=== PATIENT | female | born 1995 | race Caucasian/White ===

== ENCOUNTER 2019-06-30 13:15 | Outpatient (CLI) | payer OTHER, MEDICAID, SELFPAY ==
--- NOTE | 2019-06-30 13:32 | US_ITS ---
WS: [id number] OB limited [id number] REASON FOR EXAM: NO FHT'S/ FIRST TRIMESTER FINDINGS: heart rate 164 bpm. [place]-rump length 3.42 cm 10 weeks 2 days gestation Yolk sac 0.60 cm. US/ OB limited [id number] IMPRESSION: Normal interuterine Normal adnexa and pelvis. The fetus is approximately 10 weeks 2 days gestation a due date approximately ep2019
== END 2019-06-30 13:16 | disposition home or self-care (01) ==
LOC: RAD 13:23
PROVIDERS: Family Provider Family Medicine; PCP Family Medicine; Visit Provider Family Medicine
DX: Z34.81 Encounter for supervision of other normal pregnancy, first trimester (principal)
CPT/HCPCS: 76815

== ENCOUNTER 2019-09-02 09:42 | Outpatient (CLI) | payer OTHER, MEDICAID, SELFPAY ==
--- NOTE | 2019-09-02 09:57 | US_ITS ---
WS: [id number] ULTRASOUND TRANSABDOMINAL HISTORY: SUPERVISION OF NORMAL MULTIGRAVIDA PREGNACY, SECOND TRIMESTE : 2 PARA: 1 COMPARISON: None available. FINDINGS: Cervical length is 5.7 cm; closed. Placenta grade 0, posterior cardiac tones 141 BPM. Biparietal diameter measures 4.5 cm, equals 19w4d. Head circumference measures 16.8 cm, equals 19w3d. Abdomen circumference measures 14.3 cm, equals 19w5d. Femur length measures 3.2 cm, equals 19w6d. Estimated gestational age 19w5d An estimated delivery 01/22/2020. Estimated weight 308 g. anatomy shows normal stomach, kidneys, cervical spine, upper extremities, lower extremities, na liberty profile and mouth appear to be normal. Urinary bladder is well identified. Cardiac insertion well identified. The spine appears normal. 4 chambers of the heart are well seen. The brain shows lateral ventricles, cerebellum, cisterna magna, 2 vessels in the umbilical cord are seen. US/US OB >= 14 weeks fetus [id number] IMPRESSION: 1. Single live intrauterine uterines . Estimated gestational age 19w 5d and estimated delivery 01/22/2020. 2. Normal of development of the parts appears to be evident.
== END 2019-09-02 09:43 | disposition home or self-care (01) ==
LOC: RAD 09:53
PROVIDERS: Family Provider Family Medicine; PCP Family Medicine; Visit Provider Family Medicine
DX: Z34.92 Encounter for supervision of normal pregnancy, unspecified, second trimester; Z3A.19 19 weeks gestation of pregnancy
CPT/HCPCS: 76805

== ENCOUNTER 2019-12-07 14:46 | Outpatient (CLI) | payer OTHER, MEDICAID, SELFPAY ==
--- NOTE | 2019-12-07 14:52 | US_ITS ---
WS: [id number] ULTRASOUND OB LIMITED TECHNIQUE: Limited ultrasound examination of the fetus. CLINICAL INFORMATION: SMALL FOR GESTATIONAL AGE COMPARISON: None. FINDINGS: 4.3 cm Single interuterine gestation. presentation is vertex Placental location is posterior. Placenta grade: 0. heart rate 160 BPM. Normal amniotic fluid volume Anatomy: BDP: 8.3 cm = 33w1d HC: 30.3 cm = 33w5d AC: 29.0 cm = 33w0d FEMUR LENGTH: 6.4 cm = 33w0d Estimated weight: 2111 g EGA by ultrasound: 33w2d KALE by ultrasound: 01/23/2020 US/[place] [address] IMPRESSION: 1. Single intrauterine gestation with vertex position. 2. Normal amniotic fluid volume. 3. Estimated gestational age 33 weeks 2 days with [facility]
== END 2019-12-07 14:47 | disposition home or self-care (01) ==
LOC: RAD 14:49
PROVIDERS: Family Provider Family Medicine; PCP Family Medicine; Visit Provider Family Medicine
DX: Z36.4 Encounter for antenatal screening for fetal growth retardation (principal); Z3A.33 33 weeks gestation of pregnancy
CPT/HCPCS: 76816

== ENCOUNTER 2019-12-23 18:33 | Inpatient (IN) | payer OTHER, MEDICAID, SELFPAY ==
[2019-12-23] VITALS (41 sets, daily range): BP systolic 0–163; BP diastolic 0–101; PULSE 53–76; RESP 16–17; TEMP 36.8–37.2; BMI 29.4
--- NOTE | 2019-12-23 12:42 | US_ITS ---
WS: [id number] ULTRASOUND OB LIMITED TECHNIQUE: Limited ultrasound examination of the fetus. CLINICAL INFORMATION: hypertension COMPARISON: Ultrasound December 07, 2019 FINDINGS: Normal cervix 3.2 cm. Single interuterine gestation. Vertex presentation. Placental location is posterior. Placenta grade: 0. heart rate 138 BPM. Normal SANDY 14.6 cm Biophysical profile 6 out of 8. breathin movement: 2 tone: 2 Amniotic fluid: 2 IMPRESSION BPP 6 out of 8. Breathing not well visualized.
[2019-12-23 13:10] LABS: Basophils % 0.3 %; Eosinophils % 0.3 %; Lymphocytes # 1.9 10^3/uL (0.8-4.8); Lymphocytes % 26.9 %; Mean Corpuscular HGB Conc 32.4 g/dL (30.0-36.0); Mean Corpuscular Hemoglobin 29.1 pg (28.0-34.0); Mean Corpuscular Volume 89.6 fL (81-99); Mean Platelet Volume 12.8 fL (7.4-10.4); Monocytes # 0.4 10^3/uL (0.2-0.9); Monocytes % 5.9 %; Neutrophils # 4.76 10^3/uL (1.8-7.7); Neutrophils % 66.3 %; Nucleated Red Blood Cells % 0 %; Platelet Count 201 10^3/cmm (130-400); Red Blood Count 4.13 10^6/uL (4.1-5.3); Red Cell Distribution Width 12.5 % (12.1-15.1); White Blood Count 7.2 10^3/uL (4.0-10.0)
[2019-12-23 13:26] LABS: Alanine Aminotransferase 16 U/L (0-33); Albumin Level 3.8 g/dL (3.5-5.2); Alkaline Phosphatase 182 IU/L (35-105); Anion Gap 13.8 (5-19); Aspartate Amino Transferase 24 U/L (0-32); Blood Urea Nitrogen 9 mg/dL (6-20); Carbon Dioxide 23 mmol/L (22-29); Chloride 101 mmol/L (98-107); Creatinine Clr Calc Pharmacy 151.3565; Globulin 2.8 g/dL (1.3-4.6); Glomerular Filtration Rate 122.8 mL/min (90-130); Glucose 77 mg/dL (65-115); Osmolality Calculated 273 mOsm/kg (285-295); Potassium 3.8 mmol/L (3.5-5.1); Sodium 134 mmol/L (136-145); Total Bilirubin 0.3 mg/dL (0.15-1.2); Total Protein 6.6 g/dL (6.6-8.7)
[2019-12-23 13:27] LABS: Uric Acid 6.3 mg/dL (2.4-5.7)
[2019-12-23 13:37] LABS: Urine Creatinine 194 mg/dL (28-217)
[2019-12-23 14:04] LABS: UPRO/UCREAT Ratio 0.77 mg/mg CR; Urine Protein Random 150 mg/dL
--- NOTE | 2019-12-23 18:34 | P.HP_ITS ---
Providers/Chief Complaint Admitting Physician: Kamlesh Tabor MD Primary Care Provider: Anna Reich MD Chief Complaint: elevated blood pressure History of Present Illness Carmela Woodruff is a 24 year old at 35.6 weeks gestation. Her is complicated by gestational hypertension now with intermittent severe features. The patient was seen in my office on 12/23/2019 and noted to have a blood pressure of 170/100. For this reason she was sent to labor and delivery triage for further monitoring. Initially her blood pressures were in the 160s over 90s and they have gradually improved to the 130s to 140s systolic over 90s diastolic. The patient has had a mild headache without any significant nausea or flashes of lights. The patient does not have any symptoms with the above blood pressures. The patient denies any contractions, vaginal bleeding, leakage of fluid, chest pains, shortness of breath, diarrhea, constipation. Medications/Allergies Home Medications Medication Instructions Recorded Confirmed Last Taken Type 1 tab PO DAILY 12/23/19 12/23/19 12/23/19 09:00 History Allergies Allergy/AdvReac Type Severity Reaction Status Date / Time No Known Allergies Allergy Verified 12/23/19 13:54 PFSH Acute PFSH: Social History (Updated 12/24/19 @ 19:50 by Kamlesh Tabor MD) Smoking and tobacco status: never smoked Alcohol intake: never Substance/Drug Use: never Marital status: Current occupational status: employed Female Reproductive History: : 2 Vitals/I&O/Wt Last Vital Signs Temp 98.2 F 12/23/19 12:42 Pulse 71 12/23/19 18:33 Resp 17 12/23/19 12:42 BP 136/88 12/23/19 18:33 Weight last 48 hrs Weight 177 lb Weight 177 lb Physical Exam Narrative: EXAM NARRATIVE: General: Alert and oriented x3 Eyes: Pupils equal round and reactive to light and accommodation Mouth: Mucous membranes moist, pharynx non-erythematous Cardiac: Regular rate and rhythm without murmurs Lungs: Clear to auscultation bilaterally without wheezes, crackles or rhonchi Abdomen: Soft, non-tender, fundus small compared with gestational age Extremities: +1 edema in the bilateral lower extremities Data : 12/24/19 06:35 12/24/19 06:05 A&P Assessment and plan (1) Intrauterine : Status: Acute (2) Gestational hypertension: Status: Acute Additional A&P Information Jaz is a 24-year-old at 35.6 weeks gestation and is showing signs of new onset gestational hypertension with intermittent severe features. Her blood pressures have gotten as high as the 170 range systolic. They have been starting to calm down and are now ranging in the 130s and 140s. Because of her gestational age, we will go ahead and watch her overnight and see what her blood pressures do. If it is felt safe to continue with then we will do so, however if her blood pressures are moving into the severe range consistently or she begins to have further symptoms that would be considered severe, then we will need to proceed with induction of labor. I spoke with the patient luisana ng these concerns and she is in agreement with the current plan of care. All questions were answered. Attestations Medical Necessity Statement*: The patient is currently here under observation to further evaluate for blood pressures and to see if she is having severe features related to gestational hypertension. Coding Level of Care Code Acute Plant Maintenance Mechanic for Elise Cruz Diagnoses Intrauterine Z34.90 Gestational hypertension O13.9
[2019-12-24] VITALS (82 sets, daily range): BP systolic 0–174; BP diastolic 0–101; PULSE 52–87; RESP 16–18; TEMP 36.6–37.3; O2SAT 95–100
[2019-12-24 06:38] LABS: Alanine Aminotransferase 13 U/L (0-33); Albumin Level 3.3 g/dL (3.5-5.2); Alkaline Phosphatase 158 IU/L (35-105); Aspartate Amino Transferase 24 U/L (0-32); Blood Urea Nitrogen 11 mg/dL (6-20); Calcium 8.9 mg/dL (8.5-10.5); Carbon Dioxide 23 mmol/L (22-29); Chloride 103 mmol/L (98-107); Globulin 2.6 g/dL (1.3-4.6); Glomerular Filtration Rate 151.6 mL/min (90-130); Glucose 80 mg/dL (65-115); Osmolality Calculated 275 mOsm/kg (285-295); Sodium 135 mmol/L (136-145); Total Bilirubin 0.3 mg/dL (0.15-1.2); Total Protein 5.9 g/dL (6.6-8.7); Uric Acid 6.3 mg/dL (2.4-5.7)
[2019-12-24 06:46] LABS: Basophils % 0.3 %; Eosinophils % 0.4 %; Hematocrit 34.2 % (37.0-47.0); Hemoglobin 11.1 g/dL (11.5-15.3); Lymphocytes # 2.5 10^3/uL (0.8-4.8); Lymphocytes % 35.4 %; Mean Corpuscular HGB Conc 32.5 g/dL (30.0-36.0); Mean Corpuscular Hemoglobin 29.1 pg (28.0-34.0); Mean Corpuscular Volume 89.5 fL (81-99); Mean Platelet Volume 12.3 fL (7.4-10.4); Monocytes # 0.5 10^3/uL (0.2-0.9); Monocytes % 7.2 %; Neutrophils # 4.02 10^3/uL (1.8-7.7); Neutrophils % 56.6 %; Nucleated Red Blood Cells % 0 %; Platelet Count 182 10^3/cmm (130-400); Red Blood Count 3.82 10^6/uL (4.1-5.3); Red Cell Distribution Width 12.6 % (12.1-15.1); White Blood Count 7.1 10^3/uL (4.0-10.0)
--- NOTE | 2019-12-24 08:33 | P.PN_ITS ---
Subjective Subjective: Interval history: The patient has felt well overnight, other than having a mild headache. She has not been seeing any flashes of lights. She has not had any significant nausea or abdominal pain. She denies any leakage of fluid or vaginal bleeding. Vitals/I&O/Wt Last Vital Signs Temp 98.6 F 12/24/19 04:00 Pulse 84 12/24/19 08:14 Resp 16 12/24/19 04:00 BP 149/92 12/24/19 08:14 Weight last 48 hrs Weight 177 lb Weight 177 lb Physical Exam Narrative: EXAM NARRATIVE: General: Alert and oriented x3 Eyes: Pupils equal round and reactive to light and accommodation Mouth: Mucous membranes moist, pharynx non-erythematous Cardiac: Regular rate and rhythm without murmurs Lungs: Clear to auscultation bilaterally without wheezes, crackles or rhonchi Abdomen: Soft, non-tender, fundus smaller than expected for gestational age Extremities: Trace edema in the bilateral lower extremities Data : 12/24/19 06:35 12/24/19 06:05 A&P Additional A&P Information The patient has had blood pressures throughout the evening while on bedrest that are in the 140s to 160s systolic. They are averaging in the 150s and 160s in general. The highest diastolic has been in the 90s and 100s. The patient does not have other symptoms, however I am concerned that she has had multiple blood pressures in the 160s consistent with gestational hypertension with severe features. The patient's urine protein creatinine ratio is also elevated concerning for underlying preeclampsia. A 24-hour urine protein is currently pending. I had a lengthy discussion with the patient regarding the risks of continuing with versus proceeding with induction of labor. We discussed the recommendations to proceed with induction of labor secondary to her blood pressures. At this time the patient is in agreement with recommendations for induction at this time. I did discuss the risks of delivery for the infant that could include but not be limited to breathing issues, feeding problems, temperature instability and bilirubin issues. We will proceed with induction of labor with Cytotec. I discussed the complications of Cytotec and that it is currently not FDA approved. We will start GBS prophylaxis secondary to the patient being GBS unknown as her swab was done yesterday. The patient will likely need to be on IV magnesium once she is in active labor. All questions were answered. Proceed as above. Attestations Medical Necessity Statement*: The patient will be admitted as an inpatient secondary to induction of labor because of gestational hypertension. She will be here for greater than 2 midnights due to intrapartum and management. Coding Level of Care Code Acute Production Control Expert for Elise Cruz
[2019-12-24] MEDS: miSOPROStol 100 mcg tablet 25 MCG VAGINAL (12:39)
[2019-12-24] MEDS: dextrose 5%-lactated ringers 1,000 ML 125 ML IV (12:39)
[2019-12-24] MEDS: ampicillin 2,000 MG in sodium chloride 0.9% (plus) 50 ML 100 MG IV (12:40)
[2019-12-24] MEDS: hyDRALAzine 20 mg/mL INJ 1 mL 5 MG IVP (15:09)
--- NOTE | 2019-12-24 16:28 | PC.NURSE ---
pt walked to room LDR3 with all belongings for labor/delivery. oriented to room/call light
[2019-12-24] MEDS: ampicillin 1,000 MG in sodium chloride 0.9% (plus) 50 ML 100 MG IV (16:43)
--- NOTE | 2019-12-24 16:57 | PC.NURSE ---
pt to OR for stat section via bed
[2019-12-24] MEDS: magnesium sulfate premix 4 GM/100 ML PREMIX IV (18:02)
[2019-12-24] MEDS: magnesium sulfate premix 20 GM/500 ML BAG IV (18:02)
[2019-12-24] MEDS: lactated ringers 1,000 ML 999 ML IV (18:03)
--- NOTE | 2019-12-24 18:06 | XR_ITS ---
WS: [id number] KUB, supine portable in the OR, 12/24/2019 Clinical Data: unable to count for stat Comparison: None. Findings: No abnormal intraabdominal masses or calcifications are seen. There is no dilatated small bowel or ev idence of obstruction. No abnormal radiopaque foreign body is seen. There is a large amount of fecal material in the colon. There is a soft tissue density in the pelvis which is probably the uterus. XR/XR abdomen 1V* [id number] Impression: Negative for radiopaque foreign body.
[2019-12-24 19:26] LABS: Total Protein 24 Hour Urine 829.4 mg/24HR (0-150); Total Volume, Urine 1300 mL; Urine Total Protein 24 Hour 63.8 mg/dL (0-150)
--- NOTE | 2019-12-24 19:30 | USCV_ITS ---
Carmela Woodruff Age: 24 Gender: F : 1995 Exam Date: 12/24/2019 21:24 Ordering Phys: Kamlesh Tabor MD Technologist: Abelardo Mike [place] [facility] [place] POST PART RT LEG SWELLING HISTORY: Lower extremity swelling. PROCEDURES: Venous duplex imaging was performed in only the right lower extremity. The following venous structures were evaluated: common femoral vein, profunda vein, proximal portion of the greater saphenous vein, superficial femoral vein, and the popliteal vein. In addition, the posterior tibial and peroneal trunk were evaluated. FINDINGS: Normal 2-D Doppler and augmentation and compressibility throughout the lower extremity venous structures. Additional imaging through the proximal calf veins also reveals no thrombus. Limited evaluation of the greater saphenous vein is patent with no thrombus.. CONCLUSIONS No evidence of right lower extremity DVT. Kaushal Munguia MD (Electronically Signed) Final Date: 25 December 2019 14:34 S
--- NOTE | 2019-12-24 19:42 | PC.NURSE ---
magnesium sulfate therapy started at [address] Tabor order. Pt still under general anesthesia and not closed from surgery. Dr Masters monitoring pt.
[2019-12-24] MEDS: ketorolac 30 mg/mL INJ IVP (20:12)
--- NOTE | 2019-12-24 20:26 | P.OP_ITS ---
Operative Report Date of procedure: December 24, 2019 Pre-op Diagnosis: 1. Intrauterine at 36.0 weeks gestation 2. Gestational hypertension with severe features 3. Prolapsed umbilical cord Post-op Diagnosis: 1. Intrauterine status post primary low transverse section at 36.0 weeks gestation 2. Gestational hypertension with severe features 3. Prolapsed umbilical cord 4. Delivery of healthy female weighing 4 pounds 9 ounces with Apgars 9 and 9 Procedure Done: Emergent primary low transverse section Specimens removed/disposition: Placenta discarded Pathology: none sent Surgeon: Kamlesh Tabor Anesthesia: General Estimated blood loss (mL): 500 Complications: None Condition: stable Disposition: floor Brief History: Jaz is a 24-year-old G2 now P2 who presented to OB labor and delivery triage on 12/23/2019 secondary to gestational hypertension with severe features. She was monitored overnight and her blood pressures continued to be elevated, so induction of labor was started on the morning of 12/24/2019. The patient was given 1 dose of Cytotec and she began to contract well and changed to 4 cm dilation. The patient was brian every 2 to 4 minutes. The head was well applied and in the -1 station and a bulging bag of fluid was noted. I was called by nursing to evaluate for rupture of membranes. I evaluated the patient and discussed the procedure with her and she agreed to proceed with AROM. The exam prior to AROM was 4 cm/80%/-1 station with a bulging bag of fluid and the head was well applied. During the contraction AROM was performed at 1650 on 12/24/2019 and abundant clear fluid was noted. Shortly after rupture at 1652, I noted a pulsating mass near the 's head and identified that it was the umbilical cord. A stat section was called and the nurse placed her hand inside the vaginal vault to press the head away from the umbilical cord. The patient was taken to the OR at 1659. Procedure: After informed verbal consent was obtained due to the emergent need for , the patient was taken to the operating room and the patient was prepped and draped in a normal sterile fashion in the dorsal supine position. General anesthesia was given and adequate anesthesia was noted. At 1703 on 12/24/2019, a Pfannenstiel skin incision was made and carried through to the underlying layer of fascia using a scalpel. The fascial incision was then extended laterally using curved Mayos. The fascia was then grasped with Quinton clamps and the underlying rectus muscles were dissected off taking care to avoid injury to the underlying tissues. The peritoneum was entered bluntly with one digit. It was then bluntly. The bladder blade was placed and the vesicouterine peritoneum was well below the lower uterine segment of the uterus. The uterine incision was made in the lower uterine segment in a transverse fashion with the scalpel at 1704. The amniotic membrane was entered bluntly and no further fluid was noted. The infant's head delivered atraumatically without difficulty at 1705 on 12/24/2019. There was no nuchal cord. The mouth and nose were suctioned. The rest of the delivered without difficulty. The infant was crying immediately upon delivery. The cord was clamped and cut and the infant was handed to the awaiting pediatric nurses and Dr. Pino who kindly stepped in to assist on an emergent status. The placenta was then manually expressed. The uterus was then exteriorized from the abdomen and a wet lap was used to clear the uterus of clots and debris. The bladder blade was reinserted and the uterine incision was closed using 0 chromic in a running locking fashion. A second layer of the same suture was used in the same manner. Excellent hemostasis was obtained. Next the posterior cul-de-sac was inspected and was cleared of any blood. The uterus was then placed back into the abdomen. The gutters were cleared of any further clots and debris and the uterine incision was again inspected and hemostasis was noted. The subfascial tissue was inspected for hemostasis and the peritoneum was re-approximated using 2-0 plain in a running fashion. The fascia was then re-approximated using 0 Vicryl in a running fashion. The subcutaneous tissue was inspected for hemostasis. Shaheen's fascia was then re- approximated using 3-0 plain in a running fashion. Good hemostasis was noted. An x-ray was done to confirm that no instruments or other surgical objects were left behind as a count could not be done prior to beginning the surgery because of the emergent status. Nothing was noted in the abdomen upon review. The subcutaneous tissue was then re-approximated using a subcuticular stitch. The patient tolerated the procedure well and was recovered in stable condition. Estimated blood loss was 500 mL. Urine in the Castillo catheter was clear. The patient was taken to recovery in good condition. Currently both the mother and are doing very well.
[2019-12-25] VITALS (16 sets, daily range): BP systolic 104–134; BP diastolic 75–89; PULSE 63–98; RESP 14–18; TEMP 36.7–37.5; O2SAT 92–99
[2019-12-25 01:41] LABS: Magnesium Level (OB Only) 4.9 mg/dL (5.0-7.5)
[2019-12-25] MEDS: ketorolac 30 mg/mL INJ IVP ×3 (04:22→15:35)
[2019-12-25] MEDS: magnesium sulfate premix 20 GM/500 ML BAG IV ×2 (04:24→15:35)
[2019-12-25 07:02] LABS: Magnesium Level (OB Only) 5.9 mg/dL (5.0-7.5)
[2019-12-25] MEDS: dextrose 5%-lactated ringers 1,000 ML 75 ML IV (07:40)
[2019-12-25] MEDS: prenatal vitamin Capsule 1 CAP PO (09:36)
[2019-12-25] MEDS: ferrous sulfate EC 325 mg Tablet PO ×2 (09:36→18:36)
[2019-12-25] MEDS: docusate sodium 100 mg Capsule PO ×2 (09:36→18:36)
--- NOTE | 2019-12-25 10:00 | ANE.PACU2 ---
Inpatient post-anesthesia follow up: Airway intact: Yes Vital signs: Temperature 98.2 F Pulse Rate 96 Respiratory Rate 16 Blood Pressure 132/82 Pulse Oximetry 96 Oxygen Delivery Me thod Room Air Oxygen Flow Rate 6 Fraction of Inspir ed Oxygen Hydration adequate: Yes Nausea and vomiting: No Pain level: 2 Mental status: Baseline
[2019-12-25 11:43] LABS: Hematocrit 32.9 % (37.0-47.0); Hemoglobin 10.7 g/dL (11.5-15.3); Mean Corpuscular HGB Conc 32.5 g/dL (30.0-36.0); Mean Corpuscular Hemoglobin 29.5 pg (28.0-34.0); Mean Corpuscular Volume 90.6 fL (81-99); Mean Platelet Volume 11.8 fL (7.4-10.4); Platelet Count 173 10^3/cmm (130-400); Red Blood Count 3.63 10^6/uL (4.1-5.3); Red Cell Distribution Width 12.9 % (12.1-15.1)
--- NOTE | 2019-12-25 15:28 | PM.PN ---
Subjective Subjective: Interval history: The patient is doing well status post primary low transverse section. Her bleeding is decreasing well. Her pain is currently well controlled. The patient is currently on IV magnesium and has not passed gas yet. Vitals/I&O/Wt Last Vital Signs Temp 98.4 F 12/25/19 09:30 Pulse 64 12/25/19 14:30 Resp 16 12/25/19 14:30 BP 124/78 12/25/19 14:30 Pulse Ox 96 12/25/19 14:30 12/25/19 12/25/19 12/25/19 06:59 14:59 22:59 Intake Total 425 / 4425.000 1605 / 1605 Output Total 800 / 3400 1445 / 1445 Balance -375 / 1025.000 160 / 160 Physical Exam Narrative: EXAM NARRATIVE: General: Alert and oriented x3 Mouth: Mucous membranes moist, pharynx non-erythematous Cardiac: Regular rate and rhythm without murmurs Lungs: Clear to auscultation bilaterally without wheezes, crackles or rhonchi Abdomen: Soft, mild to moderate tenderness diffusely. Uterus is well below the umbilicus and firm. Incision is clean and dry without signs of infection or dehiscence. Extremities: +1 pitting edema in the bilateral lower extremities Urinary Catheter Management^: Castillo: Cath Placed During This Visit: yes Reason for Continuing Indwelling Catheter: Accurate Measurement of Urinary Output in Critically Ill Patients Urinary Catheter Date of Insertion: 12/24/19 Urinary Catheter Time of Insertion: 16:55 Data : 12/25/19 11:30 12/24/19 06:05 Micro: Microbiology 12/23/19 21:55 Group B Streptococcus Culture - Preliminary Vaginal Rectal A&P Assessment and plan (1) Pre-eclampsia, severe: Status: Acute Additional A&P Information The patient is currently doing well status post primary low transverse section. She is still on IV magnesium and her blood pressures are currently in the 120s to 140s systolic. The patient's 24-hour urine protein came back as 829 mg in 24 hours consistent with preeclampsia. She is not having any severe symptoms at this time. Urine output has been 100 to 600 mL/h. As all she continues to do well we will plan for stopping the IV magnesium at 24 hours after delivery. At that time we will allow her to start a diet once she is passing gas. Precautions were given regarding activity levels. All questions were answered. The patient and her are in agreement with the current plan of care. Attestations Medical Necessity Statement*: The patient will be here for greater than 2 midnights due to treatment of preeclampsia with severe features. Coding Level of Care Code Acute Case Manager Specialist for Judith Anthony Diagnoses Pre-eclampsia, severe O14.10
[2019-12-26 04:00] VITALS: BP 137/92; PULSE 79; RESP 18; TEMP 36.7
[2019-12-26] MEDS: prenatal vitamin Capsule 1 CAP PO (08:48)
[2019-12-26] MEDS: docusate sodium 100 mg Capsule PO ×2 (08:48→18:06)
--- NOTE | 2019-12-26 09:34 | P.PN_ITS ---
Subjective Subjective: Interval history: The patient is doing well off of the IV magnesium and her blood pressures continue to be stable. The patient is ambulating, voiding, passing gas and tolerating food by mouth. Her bleeding is very little. The patient states that her pain is well controlled. Vitals/I&O/Wt Last Vital Signs Temp 98.1 F 12/26/19 04:00 Pulse 79 12/26/19 04:00 Resp 18 12/26/19 04:00 BP 137/92 12/26/19 04:00 Pulse Ox 97 12/25/19 22:45 12/25/19 12/26/19 12/26/19 22:59 06:59 14:59 Intake Total 728.933 / 2553.933 Output Total 995 / 2440 Balance -266.067 / 113.933 Physical Exam Narrative: EXAM NARRATIVE: General: Alert and oriented x3 Cardiac: Regular rate and rhythm without murmurs Lungs: Clear to auscultation bilaterally without wheezes, crackles or rhonchi Abdomen: Soft, mild to moderate tenderness diffusely. Uterus is well below the umbilicus and firm. Incision is clean and dry without signs of infection or dehiscence. Extremities: +1 pitting edema in the bilateral lower extremities Urinary Catheter Management^: Castillo: Cath Placed During This Visit: yes, but has since been removed by the nurse Reason for Continuing Indwelling Catheter: Not indwelling catheter Urinary Catheter Date of Insertion: 12/24/19 Urinary Catheter Time of Insertion: 16:55 Date Urinary Catheter Removed: 12/25/19 Time Urinary Catheter Discontinued: 18:30 Data : 12/25/19 11:30 12/24/19 06:05 Micro: Microbiology 12/23/19 21:55 Group B Streptococcus Culture - Preliminary Vaginal Rectal A&P Additional A&P Information The patient is showing continued signs of improvement after having severe preeclampsia. Her blood pressures are stable at this time in the 120s and 130s systolic. She is showing signs of improvement with preeclampsia. Her pain is well controlled. The patient's bleeding continues to be very little. If she continues to do well we will plan for discharge home tomorrow. I spoke with her regarding the routine post care instructions as well as precautions for preeclampsia at home and keeping her activity levels low while monitoring blood pressures as well. All questions were answered. Attestations Medical Necessity Statement*: Patient continues need inpatient therapy as she is improving after severe preeclampsia. Plan for discharge home tomorrow if she continues to do well. Coding Level of Care Code Acute Heel Seat Fitter Machine for Elise Cruz
[2019-12-26 10:35] VITALS: BP 129/87; PULSE 76; RESP 16; TEMP 36.7; O2SAT 98
[2019-12-26 16:50] VITALS: BP 150/90; PULSE 97; RESP 16; TEMP 36.6
[2019-12-26 17:18] VITALS: BP 144/89; PULSE 69
[2019-12-26 21:14] VITALS: BP 148/91; PULSE 65; RESP 16; TEMP 36.7; O2SAT 98
[2019-12-27 06:16] VITALS: BP 148/91; PULSE 70; RESP 18; TEMP 36.7; O2SAT 98
[2019-12-27] MEDS: docusate sodium 100 mg Capsule PO (08:56)
[2019-12-27] MEDS: prenatal vitamin Capsule 1 CAP PO (08:56)
[2019-12-27 10:10] VITALS: BP 152/98; PULSE 64; RESP 16; TEMP 37.1; O2SAT 96
--- NOTE | 2019-12-27 11:01 | P.DS_ITS ---
Discharge Providers Date of Admission: 12/24/19 08:00 Date of Discharge: December 27, 2019 Attending Provider at Admission: Kamlesh Tabor MD Attending Provider at Discharge: Kamlesh Tabor MD Primary Care Provider: Anna Reich MD Diagnoses at Discharge Discharge Diagnosis (1) Pre-eclampsia, severe: Status: Acute (2) Status post primary low transverse section: Status: Acute Other Information Additional DC diagnoses/information: 1. Intrauterine status post primary low transverse section at 36.0 weeks gestation 2. Preeclampsia with severe features 3. Prolapsed umbilical cord 4. Delivery of healthy infant female weighing 4 pounds 9 ounces with Apgars 9 and 9 Reason for Visit Reason for Visit: elevated blood pressure Hospital Course Hospital Course: Jaz is a 24-year-old G2 now P2 who presented to OB labor and delivery triage on 12/23/2019 secondary to gestational hypertension with severe features. She was monitored overnight and her blood pressures continued to be elevated in the 150s and 160s systolic, so induction of labor was started on the morning of 12/24/2019. A 24-hour urine protein was started upon admission. This came back elevated consistent with preeclampsia with severe features. The patient was treated with hydralazine during this process due to elevated pressures per the hypertensive protocol. The patient was given 1 dose of Cytotec and she began to contract well and changed to 4 cm dilation. AROM was performed to help augment labor secondary to these elevated blood pressures and unfortunately there was a complication of prolapsed umbilical cord, so a stat section was done. There were no complications with the section. Please see operative report for full details. The mother was placed on IV magnesium and this was continued for 24 hours . The patient's blood pressures decreased well and she diuresed well. The IV magnesium was stopped and the patient's diet was advanced. The patient is currently ambulating, voiding, passing gas and tolerating food by mouth. Her pain is well controlled. She is showing no signs of complications at this point. Routine discharge instructions were given regarding post care as well as post preeclamptic delivery care. All questions were answered. The patient is feeling well and would like to be discharged home today. I am in agreement that this should be safe at this time. Both the patient and her are in agreement with the current plan of care. We will plan to follow-up in clinic over the next couple of days. The patient is to take her blood pressure at home and bring readings in. If significantly elevated, she is to let me know right away. Physical Exam Narrative: EXAM NARRATIVE: General: Alert and oriented x3, in no acute distr ess Cardiac: Regular rate and rhythm without murmurs Lungs: Clear to auscultation bilaterally without wheezes, crackles or rhonchi Abdomen: Soft, mild tenderness diffusely. Uterus is well below the umbilicus and firm. Incision is clean and dry without signs of infection or dehiscence. Extremities: +1 pitting edema in the bilateral lower extremities Urinary Catheter Management^: Castillo: Cath Placed During This Visit: yes, but has since been removed by the nurse Reason for Continuing Indwelling Catheter: Not indwelling catheter Urinary Catheter Date of Insertion: 12/24/19 Urinary Catheter Time of Insertion: 16:55 Date Urinary Catheter Removed: 12/25/19 Time Urinary Catheter Discontinued: 18:30 Discharge Data Data Completed and Pending: Completed Studies During Hospitalization Category Date Time Status XR abdomen 1V* [id number] Stat Exams 12/24/19 18:06 [place] [id number] Stat Ultrasound 12/24/19 19:30 Completed US OB F/U w BPP wo NST Stat Ultrasound 12/23/19 12:42 Completed Vitals: Last Vital Signs Temp 98.1 F 12/27/19 06:16 Pulse 70 12/27/19 06:16 Resp 18 12/27/19 06:16 BP 148/91 12/27/19 06:16 Pulse Ox 98 12/27/19 06:16 Discharge Plan Discharge Patient Disposition: Home Condition: Stable Prescriptions: New oxycodone-acetaminophen 5-325 mg Tablet 1 tab PO Q6H PRN (Reason: Moderate To Severe Pain) Qty: 15 RF: 0 ferrous sulfate 325 mg (65 mg iron) Tablet,Delayed Release (Dr/Ec) 325 mg PO BIDWM Qty: 30 RF: 0 ibuprofen 800 mg Tablet 800 mg PO TID Qty: 60 RF: 0 Continued 1 tab PO DAILY RF: 0 Discharge Orders: Discharge Order (Routine); Ordered 12/27/19 Ordered By: Kamlesh Tabor Referrals: Kamlesh Tabor MD [Physician] - 1-3 days Discharge Diet: Usual diet Discharge Activity: Limit activity as instructed Patient Instructions: Vitamins (By mouth), Section (DC), OB Discharge Report, OB Food/Drug Interaction Guide, OB Proud Parent Packet Activity Restrictions/Additional Instructions: Do not lift anything heavier than your infant in the car seat for the first 3 weeks, then gradually increase. If you have any concern for infection in your incision site, please seek immediate medical attention. Nothing per vagina for 6 weeks. Discharge Attestations Time Spent in Discharge Care*: greater than 30 min Quality Metrics Clinical Quality Measures During this hospital stay, did patient experience: None Coding Level of Care Code Acute Correspondence Specialist for Chg Fwd Diagnoses Pre-eclampsia, severe O14.10 Status post primary low transverse section Z98.891
[2019-12-27 13:45] VITALS: BP 152/88; PULSE 59; RESP 16; TEMP 36.8; O2SAT 98
== END 2019-12-27 14:08 | disposition home or self-care (01) | DRG 788 ==
LOC: OBGYN 12-24 07:26 → OPOB 12-24 08:22
PROVIDERS: Admitting Provider Family Medicine; Family Provider Family Medicine; PCP Family Medicine; Visit Provider Family Medicine
PROC: 10D00Z1 Extraction of Products of Conception, Low, Open Approach (ICD-10-PCS; CPT 59514; principal; 2019-12-24 17:00)
DX: O14.14 Severe pre-eclampsia complicating childbirth (principal); Z3A.36 36 weeks gestation of pregnancy; Z37.0 Single live birth; O60.14X0 Preterm labor third trimester with preterm delivery third trimester, not applicable or unspecified; O69.0XX0 Labor and delivery complicated by prolapse of cord, not applicable or unspecified; O13.4 Gestational [pregnancy-induced] hypertension without significant proteinuria, complicating childbirth
CPT/HCPCS: 12345; 36415; 51702; 59025; 59409; 74018; 76816; 76819; 80053; 82570; 83735; 84156; 84550; 85025; 85027; 87081; 93971; 96374; 96375; 98960; 99211; G0378; J0290; J0330; J0360; J0690; J1885; J2405; J2704; J3010; J3475; J7030

== ENCOUNTER → 2022-10-24 15:48 | Outpatient (BNVA) | payer OTHER, MEDICAID, SELFPAY | PROVIDERS: Family Provider Family Medicine; PCP Family Medicine; Visit Provider Family Medicine | DX: Z00.00 Encounter for general adult medical examination without abnormal findings (principal); Z51.81 Encounter for therapeutic drug level monitoring; Z13.220 Encounter for screening for lipoid disorders | CPT/HCPCS: 80053; 80061; 85025 ==

== ENCOUNTER → 2022-12-25 15:47 | Outpatient (BNVA) | payer OTHER, MEDICAID, SELFPAY | PROVIDERS: Family Provider Family Medicine; PCP Family Medicine; Visit Provider Family Medicine | DX: Z01.419 Encounter for gynecological examination (general) (routine) without abnormal findings (principal) | CPT/HCPCS: 87624 ==

== ENCOUNTER → 2023-02-05 11:43 | Outpatient (BNVA) | payer OTHER, MEDICAID, SELFPAY | PROVIDERS: Family Provider Family Medicine; PCP Family Medicine; Visit Provider Family Medicine | DX: Z12.4 Encounter for screening for malignant neoplasm of cervix (principal); Z01.419 Encounter for gynecological examination (general) (routine) without abnormal findings | CPT/HCPCS: 87624 ==